=== PATIENT | female | born 1950 | race Caucasian/White ===

== ENCOUNTER 2019-07-24 10:23 | Observation (INO) | payer MEDICARE, OTHER ==
[~2019-07-24] VITALS: Ht 165.1 cm; Wt 87.5 kg
[~2019-07-24 10:23] MED LIST: ALBU8.5H8 INH; BUDE10.2 INH; METO25TA35 PO; OXYC-302 PO
--- NOTE | 2019-07-24 10:45 | NUR ---
pt to ED from w/ son. c/o chest tightness, upper back pain "I can't find my breath" x4 days. 2/10 chest pain, nonradiating nonreproducible, sometimes gets sharp pains over L chest. denies SOB at moment. 96% RA. denies cough but sts had occasional nonproductive cough 2 days ago. c/o generalizes aches but also has fibromyalgia. lungs ctab, nsr on monitor 60s. A&Ox4 GCS 15. given nausea medication at , had some diarrhea 2 days ago, son had the flu "a couple days ago". no fevers/chills. abd soft, tender in lower quadrants, bs normal. no vomiting, no urinary sx. call samaniego in reach awaiting md merino.
[2019-07-24] MEDS ORDERED: ASPIRIN 81 MG TABLET CHEW ONE (11:29)
[2019-07-24] MEDS ORDERED: ASPIRIN 81 MG TABLET CHEW PO ONE (11:30)
--- NOTE | 2019-07-24 11:33 | NUR ---
AWAITING LAB RESULTS. PT STS HAD ASA AT , DR GEORGE NOTIFIED, HOLDING ASA. VSS, PAIN 2/10, NO CHANGE IN CONDITION, NAD, CALL WYNNE IN REACH. SR [id number].
[2019-07-24 11:36] LABS: BASOPHILS # (AUTO) 0.02 x10^3/uL (0-0.1); BASOPHILS % (AUTO) 0 % (0-1); EOSINOPHILS # (AUTO) 0.21 x10^3/uL (0-0.4); EOSINOPHILS % (AUTO) 4 % (1-7); LYMPHOCYTES # (AUTO) 0.86 x10^3/uL (1-3.4); LYMPHOCYTES % (AUTO) 14 % (22-44); MD NO; MEAN CORPUSCULAR HEMOGLOBIN 27.6 pg (27.0-34.8); MEAN CORPUSCULAR HGB CONC 33.3 g/dL (32.4-35.8); MEAN CORPUSCULAR VOLUME 82.9 fL (80-100); MEAN PLATELET VOLUME 7.3 fL (7.4-10.4); MONOCYTES # (AUTO) 0.32 x10^3/uL (0.2-0.8); MONOCYTES % (AUTO) 5 % (2-9); NEUTROPHILS # (AUTO) 4.62 x10^3/uL (1.8-6.8); NEUTROPHILS % (AUTO) 77 % (42-75); PLATELET COUNT 246 x10^3/uL (130-400); RED BLOOD COUNT 5.15 x10^6/uL (3.82-5.3); RED CELL DISTRIBUTION WIDTH 14.4 % (9.6-15.2)
[2019-07-24 11:50] LABS: ANION GAP 5 mmol/L (5-15); CALCIUM 8.5 mg/dL (8.5-10.1); CHLORIDE 102 mmol/L (98-107)
[2019-07-24 11:56] LABS: ALANINE AMINOTRANSFERASE 42 U/L (12-78); ALKALINE PHOSPHATASE 88 U/L (45-117); BILIRUBIN,TOTAL 0.4 mg/dL (0.2-1.0); CREATININE 1.05 mg/dL (0.55-1.02); TOTAL PROTEIN 7.3 g/dL (6.4-8.2); TROPONIN I < 0.015 ng/mL (0.000-0.045)
--- NOTE | 2019-07-24 12:07 | NUR ---
labs/trop/cxr wnl. results up for recheck. as
--- NOTE | 2019-07-24 13:00 | NUR ---
pt resting, sr on monitor [id number]. no change in condition, call samaniego in reach. as
--- NOTE | 2019-07-24 13:10 | NUR ---
Spoke w/ Dr. Levy re: lab results and poc, pt most likely to be admitted.
--- NOTE | 2019-07-24 13:30 | NUR ---
Dr. Levy in room to speak w/ pt re: admit and stress test.
--- NOTE | 2019-07-24 13:39 | NUR ---
pt to be admitted, aware and agrees. vss. no change in condition.
[2019-07-24] MEDS ORDERED: METHOCARBAMOL 500 MG TABLET PO PRN (14:30)
[2019-07-24] MEDS ORDERED: ONDANSETRON ODT 4 MG PO PRN (14:30)
[2019-07-24] MEDS ORDERED: ACETAMINOPHEN 325 MG TABLET PO PRN (14:30)
[2019-07-24] MEDS ORDERED: morphine SULFATE 10 MG/ML, 1ML IVPush PRN (14:30)
[2019-07-24] MEDS ORDERED: KETOROLAC 30 MG/1 ML IV PRN (14:30)
[2019-07-24] MEDS ORDERED: IBUPROFEN 600 MG TABLET PO PRN (14:30)
[2019-07-24] MEDS ORDERED: ONDANSETRON 2MG/ML, 2ML IVPush PRN (14:30)
[2019-07-24 14:52] VITALS: BP 160/75
[2019-07-24 17:29] LABS: TROPONIN I < 0.015 ng/mL (0.000-0.045)
[2019-07-24 20:39] VITALS: BP 165/77
[2019-07-24 23:22] LABS: TROPONIN I < 0.015 ng/mL (0.000-0.045)
[2019-07-25 01:03] VITALS: BP 130/66
[2019-07-25 05:21] LABS: BASOPHILS # (AUTO) 0.03 x10^3/uL (0-0.1); BASOPHILS % (AUTO) 1 % (0-1); EOSINOPHILS # (AUTO) 0.27 x10^3/uL (0-0.4); EOSINOPHILS % (AUTO) 5 % (1-7); LYMPHOCYTES # (AUTO) 0.95 x10^3/uL (1-3.4); LYMPHOCYTES % (AUTO) 17 % (22-44); MD NO; MEAN CORPUSCULAR HEMOGLOBIN 27.6 pg (27.0-34.8); MEAN CORPUSCULAR HGB CONC 33.1 g/dL (32.4-35.8); MEAN CORPUSCULAR VOLUME 83.4 fL (80-100); MEAN PLATELET VOLUME 7.3 fL (7.4-10.4); MONOCYTES # (AUTO) 0.35 x10^3/uL (0.2-0.8); MONOCYTES % (AUTO) 6 % (2-9); NEUTROPHILS # (AUTO) 4.08 x10^3/uL (1.8-6.8); NEUTROPHILS % (AUTO) 72 % (42-75); PLATELET COUNT 229 x10^3/uL (130-400); RED BLOOD COUNT 5.14 x10^6/uL (3.82-5.3); RED CELL DISTRIBUTION WIDTH 14.2 % (9.6-15.2)
[2019-07-25 05:42] LABS: ALBUMIN 3.8 g/dL (3.4-5.0); ANION GAP 5 mmol/L (5-15); CALCIUM 9.1 mg/dL (8.5-10.1); CHLORIDE 106 mmol/L (98-107)
[2019-07-25 05:46] LABS: ALANINE AMINOTRANSFERASE 39 U/L (12-78); ALKALINE PHOSPHATASE 88 U/L (45-117); BILIRUBIN,TOTAL 0.7 mg/dL (0.2-1.0); CHOL/HDL RATIO 7.3; CHOLESTEROL, TOTAL 284 mg/dL (140-239); CREATININE 1.06 mg/dL (0.55-1.02); HDL CHOL % 14 % (28-40); HDL CHOLESTEROL (DIRECT) 39 mg/dL (40-60); LDL CHOLESTEROL,CALCULATED 189 mg/dL (54-169); LDL/HDL RATIO 4.8 (0.5-3.0); TOTAL PROTEIN 7.2 g/dL (6.4-8.2); TRIGLYCERIDES 279 mg/dL (50-200); VLDL CHOLESTEROL 56 mg/dL (0-25)
[2019-07-25] MEDS ORDERED: ASPIRIN 325 MG TABLET PO SCH (06:00)
[2019-07-25 06:21] VITALS: BP 134/61
[2019-07-25] MEDS ORDERED: PANTOPROZOLE 40MG TABLET PO SCH (07:30)
[2019-07-25] MEDS ORDERED: REGADENOSON 0.4 MG/5 ML SYRINGE ONE (09:04)
[2019-07-25 12:49] VITALS: BP 153/65
[2019-07-25] MEDS ORDERED: ATOR40TA78 PO (15:19)
[2019-07-25] MEDS ORDERED: ASPI-515 PO (15:19)
[2019-07-25] MEDS ORDERED: PANT20TA3 PO (15:30)
[2019-07-25] MEDS ORDERED: PANTOPROZOLE 40MG TABLET PO ONE (16:00)
[2019-07-25] MEDS ORDERED: ATORVASTATIN 40 MG TABLET PO SCH (21:00)
== END 2019-07-25 16:51 | disposition home or self-care (01) ==
LOC: ED 12:07 → UNDOADMOB 13:39 → INTOOBSV 13:39 → EDIP 13:39 → 5SO 14:30 → EDIP 14:30
PROVIDERS: ADMIT Internal Medicine; ATTEND Internal Medicine
DX: R07.9 Chest pain, unspecified (principal); I49.9 Cardiac arrhythmia, unspecified; I34.1 Nonrheumatic mitral (valve) prolapse; K21.9 Gastro-esophageal reflux disease without esophagitis; I10 Essential (primary) hypertension; E78.5 Hyperlipidemia, unspecified; J45.909 Unspecified asthma, uncomplicated; Z88.0 Allergy status to penicillin; Z88.2 Allergy status to sulfonamides; Z87.891 Personal history of nicotine dependence; Z90.710 Acquired absence of both cervix and uterus
CPT/HCPCS: 36415; 71045; 78452; 80053; 80061; 84484; 85025; 93005; 93017; 96374; 99284; A9502; C9898; G0378; J1885; J2785